=== PATIENT | female | born 1970 | race Caucasian/White ===

== ENCOUNTER 2020-09-21 22:08 | Emergency (ER) | payer OTHER ==
[~2020-09-21] VITALS: Ht 157.5 cm; Wt 68.5 kg
[2020-09-21 22:20] VITALS: BP 129/94
--- NOTE | 2020-09-21 22:33 | NUR ---
See patient assessment for more information.
[2020-09-21 22:47] LABS: BASOPHILS # (AUTO) 0.1 K/uL (0.00-0.22); BASOPHILS % (AUTO) 0.6 % (0.0-2.0); EOSINOPHILS # (AUTO) 0.1 K/uL (0-0.4); EOSINOPHILS % (AUTO) 0.9 % (0.0-4.0); HEMATOCRIT 41.2 % (36-48); LYMPHOCYTES # (AUTO) 2.9 K/uL (2.5-16.5); LYMPHOCYTES % (AUTO) 31.5 % (20.5-51.1); MEAN CORPUSCULAR HEMOGLOBIN 30 pg (27-31); MEAN CORPUSCULAR HGB CONC 34 g/dL (33-37); MEAN CORPUSCULAR VOLUME 86.6 fL (80-94); MONOCYTES # (AUTO) 0.7 K/uL (0.8-1.0); MONOCYTES % (AUTO) 7.5 % (1.7-9.3); NEUTROPHILS # (AUTO) 5.4 K/uL (1.8-7.7); NEUTROPHILS % (AUTO) 59.5 % (42.2-75.2); PLATELET COUNT (AUTO) 231 K/uL (140-450); RED BLOOD CELL COUNT(AUTO) 4.75 MIL/uL (4.20-5.40); RED CELL DISTRIBUTION WIDTH 12.3 % (11.6-13.7); WHITE BLOOD COUNT (AUTO) 9.1 K/uL (4.8-10.8)
[2020-09-21 23:12] LABS: ANION GAP 12.7 (8-16); CARBON DIOXIDE 28.2 mmol/L (21-32); POTASSIUM 3.9 mmol/L (3.5-5.1)
[2020-09-21 23:13] LABS: CREATININE 0.8 mg/dL (0.6-1.3)
[2020-09-21 23:14] LABS: ALBUMIN 3.9 g/dL (3.4-5.0); TOTAL BILIRUBIN 0.3 mg/dL (0.0-1.0)
--- NOTE | 2020-09-21 23:30 | NUR ---
ERMD at bedside assessing patient.
[2020-09-22] MEDS: INSULIN REGULAR, HUMAN 100 UNIT/ML VIAL SUBQ ONE (00:09)
[2020-09-22 01:58] VITALS: BP 126/81
--- NOTE | 2020-09-22 01:58 | NUR ---
Patient discharged with v/s stable. Written and verbal after care instructions given and explained. Patient verbalized understanding. Ambulatory with steady gait. All questions addressed prior to discharge. Advised to follow up with PMD.
== END 2020-09-22 01:58 | disposition home or self-care (01) ==
LOC: MED 22:08
DX: N94.9 Unspecified condition associated with female genital organs and menstrual cycle (principal); N85.9 Noninflammatory disorder of uterus, unspecified; E11.65 Type 2 diabetes mellitus with hyperglycemia
CPT/HCPCS: 36415; 76830; 80053; 81002; 81025; 85025; 96372; 99284; J1815

== ENCOUNTER 2021-01-29 23:12 | Emergency (ER) | payer OTHER ==
[~2021-01-29] VITALS: Ht 162.6 cm; Wt 70.3 kg
[2021-01-29 23:17] VITALS: BP 153/76
--- NOTE | 2021-01-29 23:22 | NUR ---
PT AMBULATED TO [facility]
[2021-01-29] MEDS ORDERED: FAMOTIDINE 20 MG/2 ML VIAL IVP ONE (23:40)
[2021-01-29] MEDS ORDERED: BLOOD GLUCOSE MONITORING 1 DEV DEV FS ONE (23:40)
[2021-01-29] MEDS ORDERED: methylPREDNISolone SS 125 MG/2 ML VIAL IVP ONE (23:40)
[2021-01-29] MEDS ORDERED: diphenhydrAMINE 50 MG/ML VIAL IVP ONE (23:40)
--- NOTE | 2021-01-29 23:58 | NUR ---
50 YO/F BIB SELF, ACCOMPANIED BY , W C/O ASTHMA SYMPTOMS OF DIFFICULTY BREATHING BEGINING,AND THROAT SWELLING AT 2100 S/P TAKING ADVIL MEDICATION. PATIENT REPORTS THIS HAS HAPPENED SEVERAL TIMES IN THE PAST BUT USUALLY RESOLVES WHEN USING ALBUTEROL, BUT THIS TIME SYMPTOMS DID NOT RESOLVE W ALBUTEROL. DENIES DIFFICULTY SWALLOWING. PATIENT REPORTS APPROX 25 MINUTES AFTER SOB BEGAN PATIENT EYES BEGAN TO SWELL +BLURRY VISION + SANDLIKE SENSATION TO EYES, + NAUSE (NO VOMITING), +DIZZYNESS ONLY WHEN WALKING. PATIENT ALSO REPORTS TEMPORAL HEADACHE 10/10 PULSATING NON-RADIATING CONSTANT, WORSENS W LIGHT. UNABLE TO ASSESS PUPILS D/T PAIN W LIGHT. PATIENT AOX4, GCS 15, S1S2 PRESENT W +2 RADIAL AND PEDAL PULSES, LUNG SOUNDS CLEAR THROUGH OUT W BREATHING EVEN AND UNLABORED, BOWEL SOUNDS PRESENT (DENIES NAUSEA AT THIS TIME), SWELLING NOTED TO BL PERIORBITAL EYES. VSS On MONITOR. PATIENT SITTIN GIN BED LOCKED IN LOWEST POSITION W X2 SIDERAILS UP FOR PATIENT SAFETY. NAD NOTED, WILL CONTINUE TO MONITOR. AT BEDSIDE. PMH: DIABETES, ASTHMA, HIGH CHOLESTEROL ALLERGIES: ADVIL, ACETAMINOPHEN, BENADRYL
--- NOTE | 2021-01-30 00:05 | NUR ---
PATIENT REPORTS ALLERGY TO BENADRYL PATIENT REFUSED. EYE SWELLING, DIFFICULTY BREATHING REPORTED WHEN TAKING BENADRYL. ERMD AWARE, NOT TO BE GIVEN.
[2021-01-30] MEDS ORDERED: METOCLOPRAMIDE 10 MG/2 ML INJ VIAL IVP ONE (01:05)
--- NOTE | 2021-01-30 01:19 | NUR ---
PATIENT REPORTS SOB AND THROAT SWELLING IS RESOLVED. PATIENT ALSO REPORTS EYE SYMPTOMS ARE IMPROVING. ONGOING HEADACHE, PATIENT MEDICATED FOR HEADACHE. VSS. AT BEDSIDE.
--- NOTE | 2021-01-30 01:25 | NUR ---
PATIENT REPORTS THROAT SWELLING AND DIFFICULTY BREATHING, PATIENT IS TACHYCARDIC AND TACYPNEIC. ERMD AT BEDSIDE.
[2021-01-30] MEDS ORDERED: EPINEPHrine 1 MG/ML AMP ONE (01:27)
[2021-01-30] MEDS ORDERED: EPINEPHrine 1 MG/ML AMP IM ONE (01:30)
--- NOTE | 2021-01-30 01:30 | NUR ---
PATIENT REFUSED EPINEPHRINE AND REPORTS SHE FEELS BETTER. ERMD AWARE.
[2021-01-30 02:00] VITALS: BP 134/78
== END 2021-01-30 02:38 | disposition home or self-care (01) ==
LOC: MED 23:12
DX: H02.843 Edema of right eye, unspecified eyelid (principal); H02.846 Edema of left eye, unspecified eyelid; R09.89 Other specified symptoms and signs involving the circulatory and respiratory systems; T39.1X5A Adverse effect of 4-Aminophenol derivatives, initial encounter; E11.9 Type 2 diabetes mellitus without complications; Z88.6 Allergy status to analgesic agent; Z88.8 Allergy status to other drugs, medicaments and biological substances; Y92.89 Other specified places as the place of occurrence of the external cause
CPT/HCPCS: 96374; 96375; 99285; J2765; J2930; J3490; J0171; J1200

== ENCOUNTER 2022-01-16 18:13 | Emergency (ER) | payer OTHER ==
[~2022-01-16] VITALS: Ht 162.6 cm; Wt 81.6 kg
--- NOTE | 2022-01-16 18:22 | NUR ---
PT W/C ASSISTED TO BED 11.
[2022-01-16 18:27] VITALS: BP 129/85
[2022-01-16] MEDS ORDERED: ACETAMINOPHEN EXTRA STRENGTH 500 MG TAB PO ONE (18:35)
[2022-01-16] MEDS ORDERED: ACETAMINOPHEN EXTRA STRENGTH 500 MG TAB ONE (18:36)
--- NOTE | 2022-01-16 18:53 | NUR ---
51/F BIB TO ED WITH C/O BODY ACHES AND FEVERS X3 DAYS. PER PATIENT WAS IN THE CAR AND BEGAN "SHAKING" AND C/O BODY ACHES. REPORTS GIVING TYLENOL TODAY AT 1PM. UPON ARRIVAL PATIENT SHAKING, ORAL TEMP OF 101, DENIES COUGH, CP, SOB OR RECENT SICK CONTACTS.
--- NOTE | 2022-01-16 19:15 | NUR ---
ASSUME CARE OF PT BY TRAM RN, PT C/O LOWER ABD PAIN AND BODYACHES, PT HAD SURGERY ON 12/14/21 AND C/O 10/05 PAIN. PT HAD FEVER 101 AND GIVEN TYLENOL BY PRIOR SHIFT. PT ON TRAFFIC COURT MAGISTRATE.
--- NOTE | 2022-01-16 19:23 | NUR ---
Pt report given to ANGELITA UGALDE. Transfer of care at this time.
[2022-01-16] MEDS ORDERED: MORPHINE SULFATE 4 MG/ML SYR IVP ONE (19:25)
[2022-01-16 19:43] LABS: BASOPHILS % (AUTO) 0.5 % (0.0-2.0); EOSINOPHILS % (AUTO) 0.2 % (0.0-4.0); HEMATOCRIT 38.2 % (36-48); HEMOGLOBIN 12.7 g/dL (12.0-16.0); LYMPHOCYTES # (AUTO) 0.7 K/uL (2.5-16.5); LYMPHOCYTES % (AUTO) 12.6 % (20.5-51.1); MEAN CORPUSCULAR HEMOGLOBIN 28 pg (27-31); MEAN CORPUSCULAR HGB CONC 33 g/dL (33-37); MEAN CORPUSCULAR VOLUME 85.6 fL (80-94); MONOCYTES # (AUTO) 0.1 K/uL (0.8-1.0); NEUTROPHILS # (AUTO) 4.5 K/uL (1.8-7.7); NEUTROPHILS % (AUTO) 84.7 % (42.2-75.2); PLATELET COUNT (AUTO) 214 K/uL (140-450); RED BLOOD CELL COUNT(AUTO) 4.47 MIL/uL (4.20-5.40); RED CELL DISTRIBUTION WIDTH 13.3 % (11.6-13.7); WHITE BLOOD COUNT (AUTO) 5.4 K/uL (4.8-10.8)
[2022-01-16 19:51] LABS: BILIRUBIN,URINE NEGATIVE (NEGATIVE); BLOOD, URINE 2+ (NEGATIVE); COLOR,URINE YELLOW (YELLOW); LEUKOCYTE ESTERASE ,URINE 1+ (NEGATIVE); NITRITE, URINE POSITIVE (NEGATIVE); UGLUCOSE 3+ (NEGATIVE)
[2022-01-16 19:53] LABS: APPEARANCE,URINE HAZY (CLEAR)
[2022-01-16 19:57] LABS: ALBUMIN 3.1 g/dL (3.4-5.0); ANION GAP 20.3 (8-16); CARBON DIOXIDE 18.9 mmol/L (21-32); CREATININE 0.9 mg/dL (0.6-1.3); POTASSIUM 4.2 mmol/L (3.5-5.1); TOTAL BILIRUBIN 0.5 mg/dL (0.0-1.0)
[2022-01-16 20:06] LABS: WBC,URINE TOO MANY TO COUNT /HPF (0-5)
[2022-01-16] MEDS: NACL 0.9% 1,000 ML IV SCH ×2 (20:38→21:54)
--- NOTE | 2022-01-16 20:42 | NUR ---
PT TO CT SCAN.
--- NOTE | 2022-01-16 21:45 | NUR ---
PT STATES PAIN HAS REDUCED AND FEELS BETTER. PT RESTING IN BED, NO DISTRESS OBSERVED.
[2022-01-16] MEDS ORDERED: CIPR500T4 PO (21:46)
[2022-01-16] MEDS ORDERED: ACET-8386 PO (21:46)
[2022-01-16 22:07] VITALS: BP 105/70
--- NOTE | 2022-01-20 15:57 | NUR ---
LATE ENTRY. RECEIVED POSITIVE URINE CULTURE. FORM GIVEN TO DR SEGOVIA, TREATMENT APPROPRIATE. FORM PLACED IN BINDER.
== END 2022-01-16 22:05 | disposition home or self-care (01) ==
LOC: MED 18:13
DX: N39.0 Urinary tract infection, site not specified (principal); J45.909 Unspecified asthma, uncomplicated; E11.9 Type 2 diabetes mellitus without complications; I10 Essential (primary) hypertension; Z98.890 Other specified postprocedural states; Z88.6 Allergy status to analgesic agent; Z88.8 Allergy status to other drugs, medicaments and biological substances
CPT/HCPCS: 36415; 71045; 74177; 80053; 81001; 81025; 83690; 85025; 87086; 96361; 96374; 99285; J2270; J7030; Q9967

== ENCOUNTER 2024-02-13 10:36 | Emergency (ER) | payer OTHER ==
[~2024-02-13] VITALS: Ht 157.5 cm; Wt 63.5 kg
[~2024-02-13 10:36] MED LIST: ACET-8905 PO; CIPR500T4 PO
[2024-02-13 10:42] VITALS: BP 131/77; PULSE 99; RESP 20; TEMP 98.1; O2SAT 99
[2024-02-13] MEDS: CYCLOBENZAPRINE 10 MG TAB PO ONE (12:14)
[2024-02-13] MEDS: oxyCODONE/APAP 5/325 MG 1 TAB TAB PO ONE (12:15)
[2024-02-13] MEDS: LIDOCAINE 5% 1 EA PATCH TP ONE (12:15)
[2024-02-13] MEDS ORDERED: LID5T TP (13:49)
[2024-02-13] MEDS ORDERED: CYCL-711 PO (13:49)
[2024-02-13 13:56] VITALS: BP 144/83; PULSE 86; RESP 16; TEMP 98.1; O2SAT 98
== END 2024-02-13 13:56 | disposition home or self-care (01) ==
LOC: MED 10:36
DX: M54.12 Radiculopathy, cervical region (principal); M54.16 Radiculopathy, lumbar region; M54.41 Lumbago with sciatica, right side; J45.909 Unspecified asthma, uncomplicated; E11.9 Type 2 diabetes mellitus without complications; I10 Essential (primary) hypertension; Z79.899 Other long term (current) drug therapy; Z88.6 Allergy status to analgesic agent; Z88.8 Allergy status to other drugs, medicaments and biological substances
CPT/HCPCS: 72125; 72131; 99284